=== PATIENT | male | born 1990 | race Caucasian/White ===

== ENCOUNTER 2020-04-07 07:49 | Emergency (ER) | payer MEDICAID ==
[~2020-04-07] VITALS: Ht 182.9 cm; Wt 90.7 kg
--- NOTE | 2020-04-07 07:55 | NUR ---
PT BECAME AGGRESSIVE AND COMBATIVE SUDDENLY. PT HAS SEVERE DIAPHORESIS AND ANXIETY/PANIC ATTACKS AT THIS TIME. HELPED PT TO ROOM 12 VIA WHEELCHAIR. PT IS LYING DOWN IN THE BED AND BEING PLACED ON MONITOR. VSS SHOWED ON THE MONITOR.
--- NOTE | 2020-04-07 08:00 | NUR ---
PATIENT PRESENTS TO THE ER WITH RT TESTICULE RETRACTED INTO BODY X 4AM TODAY AFTER TAKING EXTENZE PILL. PATIENT PRESENTS WITH SEVERE ANXIETY/PANIC ATTACKS AND DIAPHORESIS. STATES MILD PRESSURE PAIN ON THE RT TESTICULE.
[2020-04-07] MEDS ORDERED: LORazepam 2 MG/ML VIAL IVP ONE (08:10)
--- NOTE | 2020-04-07 08:10 | NUR ---
DR. SPENCER IS EVALUATING PT AT BEDSIDE.
[2020-04-07] MEDS ORDERED: LORazepam 2 MG/ML VIAL ONE (08:13)
[2020-04-07] MEDS ORDERED: KETOROLAC 30 MG/ML VIAL IVP ONE (08:15)
--- NOTE | 2020-04-07 08:27 | NUR ---
US IS AT BEDSIDE.
[2020-04-07] MEDS ORDERED: NACL 0.9% 1,000 ML IV ONE (09:10)
--- NOTE | 2020-04-07 09:25 | NUR ---
Patient urinated into urinal with 300ml yellow urine out put.
[2020-04-07 09:36] VITALS: BP 133/67
--- NOTE | 2020-04-07 09:36 | NUR ---
Patient discharged with v/s stable. Written and verbal after care instructions given and explained. Patient verbalized understanding. Ambulatory with steady gait. All questions addressed prior to discharge. Advised to follow up with PMD.
== END 2020-04-07 09:36 | disposition home or self-care (01) ==
LOC: MED 07:49
DX: N48.30 Priapism, unspecified (principal); N50.819 Testicular pain, unspecified
CPT/HCPCS: 76870; 96374; 96375; 99284; J1885; J2060; Q0092